=== PATIENT | female | born 1990 | race Caucasian/White ===

== ENCOUNTER 2016-08-15 03:40 | Inpatient (IN) | payer BC ==
[~2016-08-15] VITALS: Ht 170.2 cm; Wt 91.0 kg
[2016-08-15 04:24] VITALS: Ht 170.2 cm; Wt 91.0 kg
[2016-08-15 04:25] VITALS: BP 126/77; PULSE 68; RESP 15
[2016-08-15] MEDS ORDERED: OXYTOCIN 30 UNITS/LR 500 ML IV PRN (04:30)
[2016-08-15] MEDS ORDERED: METHYLERGONOVINE 0.2 MG INJ IM PRN (04:30)
[2016-08-15] MEDS ORDERED: IBUPROFEN 600 MG TAB PO PRN (04:30)
[2016-08-15] MEDS ORDERED: LIDOCAINE 1% (MPF) 30 ML INJ INJ PRN (04:30)
[2016-08-15] MEDS ORDERED: CARBOPROST 250 MCG INJ IM PRN (04:30)
[2016-08-15] MEDS ORDERED: LACTATED RINGER'S 1,000 ML IV PRN (04:30)
[2016-08-15] MEDS ORDERED: BUTORPHANOL 2 MG INJ IV PRN (04:30)
[2016-08-15] MEDS ORDERED: OXYTOCIN 30 UNITS/LR 500 ML IV SCH ×2 (04:30→21:00)
[2016-08-15] MEDS ORDERED: MISOPROSTOL 200 MCG TAB PR PRN (04:30)
[2016-08-15] MEDS: LACTATED RINGER'S 1,000 ML IV SCH ×3 (04:34→19:32)
[2016-08-15 05:46] LABS: INR 0.88; PROTIME 11.9 Sec (12.2-14.2); PT RATIO 0.9
[2016-08-15 05:47] LABS: PARTIAL THROMBOPLASTIN TIME 25.5 Sec (25.0-35.0)
[2016-08-15 05:53] LABS: BASOPHILS % 0.2 % (0.0-2.0); EOSINOPHILS % 0.5 % (0.0-7.0); HEMATOCRIT 34.1 % (37.0-47.0); HEMOGLOBIN 11.6 g/dl (12.0-16.0); LYMPHOCYTES # 2.1 10^3/ul (0.8-2.9); LYMPHOCYTES % 24.7 % (15.0-51.0); MEAN CORPUSCULAR HEMOGLOBIN 31.8 pg (29.0-33.0); MEAN CORPUSCULAR HGB CONC 34.1 g/dl (32.0-37.0); MEAN CORPUSCULAR VOLUME 93.3 fl (82.0-101.0); MEAN PLATELET VOLUME 11.3 fl (7.4-10.4); MONOCYTE # 0.8 10^3/ul (0.3-0.9); MONOCYTES % 9.5 % (0.0-11.0); NEUTROPHIL # 5.4 10^3/ul (1.6-7.5); NEUTROPHILS % 65.1 % (39.0-77.0); PLATELET COUNT 143 10^3/UL (140-440); RED BLOOD COUNT 3.66 10^6/ul (4.20-5.40); RED CELL DISTRIBUTION WIDTH 13.3 % (11.5-14.5); UNCORRECTED WBC 8.4 10^3/ul (4.8-10.8); WHITE BLOOD COUNT 8.4 10^3/ul (4.8-10.8)
[2016-08-15 06:51] LABS: CONDITION 1; LH ANALYZER COMMENTS 1; SUSPECT 1
[2016-08-15] MEDS ORDERED: METHYLERGONOVINE 0.2 MG INJ ONE (07:00)
[2016-08-15 08:09] LABS: BARBITURATES Negative (NEGATIVE); BENZODIAZEPINES Negative (NEGATIVE); CANNABINOIDS Negative (NEGATIVE); COCAINE Negative (NEGATIVE); OPIATES Negative (NEGATIVE)
--- NOTE | 2016-08-15 10:14 | RADRPT ---
PROCEDURE: US OB. CLINICAL INDICATION: Size and dates , post dates TECHNIQUE: Multiple sonographic images of the pelvis and gravid uterus were obtained. The images were reviewed on a PACS workstation. COMPARISON: No prior studies are available for comparison. FINDINGS: There is a single viable intrauterine gestation. Cardiac activity is present with 150 beats per min tomeka. There is a vertex presentation. The placenta is anterior. There is no evidence for an abruption or placenta previa. There is a normal amount of amniotic fluid with an HERRERA = 10.7 cm. Measurements were made in order to determine age. The results are as follows: BPD =9.9 cm HC =34.6 cm AC =36 cm FL =7.9 cm Estimated gestational age of approximately 40 weeks and 2 days based on ultrasound measurements. Clinical age: 40 weeks and 3 days. The EFW = 3990 g, 73.6%, based on LMP age. RPTAT: AA IMPRESSION: Single viable intrauterine gestation of approximately 40 weeks and 2 days based on ultrasound measu rements. .Taco Chaudhry MD, MD Date Time Electronically viewed and signed by .Taco Chaudhry MD, on 08/15/2016 10:14 .S/
[2016-08-15] MEDS ORDERED: FENTAnyl 2MCG/ML-ROPIV 0.2% 100 ML ONE (10:52)
[2016-08-15] MEDS ORDERED: DIPHENHYDRAMINE 50 MG INJ IV PRN (13:30)
[2016-08-15] MEDS ORDERED: ONDANSETRON 4 MG INJ IV PRN (13:30)
[2016-08-15] MEDS ORDERED: NALOXONE (0.4 MG/ML) INJ IV PRN (13:30)
[2016-08-15] MEDS: FENTAnyl 2MCG/ML-ROPIV 0.2% 100 ML BAG EPI SCH (19:19)
[2016-08-16] MEDS: FENTAnyl 2MCG/ML-ROPIV 0.2% 100 ML BAG EPI SCH ×2 (03:07→10:52)
[2016-08-16] MEDS: LACTATED RINGER'S 1,000 ML IV SCH ×3 (03:34→19:24)
--- NOTE | 2016-08-16 07:12 | HP ---
Date/Time of Note Date/Time of Note DATE: 08/16/16 TIME: 07:09 OB - History Hx of Present Free Text/Dictation Admitted for induction of labor for postdates. : 1 Care: Good Care Ultrasounds: Normal mid trimester US Obstetrical Complications: None Medical Complications: Other Other Concerns: Asthma,no recent attcks.Uses Albuterol inhaler. Past Family/Social History * Past Medical, Surgical, Family and Obstetric Histories reviewed from chart. OB Admission Exam Vital Signs Vital Signs Vital Signs Date Time Temp Pulse Resp B/P Pulse Ox O2 Delivery O2 Flow Rate FiO2 08/15/16 04:25 98.6 68 15 126/77 Room Air Last 72 hours Lab Results CBC & BMP 08/15/16 04:25 CARRI KOEHLER MD Aug 16, 2016 07:11
--- NOTE | 2016-08-16 07:14 | PN ---
Date/Time of Note Date/Time of Note DATE: 08/16/16 TIME: 07:12 OB Subjective Subjective Subjective Induction with an epidural. OB Objective Objective Objective FHR: category 1. AROM: clear fluid HEENT: WNL Heart: Rhythm Normal Lungs: Clear Abdomen: WNL Extremities: Normal Reflexes: Normal Cervical Dilatation: 7cm Effacement: 100% Station: -1 Membranes: Ruptured Amniotic Fluid: Clear Heart Rate: 140's Accelerations: Accelerations Present Decelerations: No Decelerations Varibility: Moderate Contractions on Admission: 6-10 Minutes Apart Intensity: Mild CARRI KOEHLER MD Aug 16, 2016 07:14
--- NOTE | 2016-08-16 14:28 | LDN ---
Date/Time of Note Date/Time of Note DATE: 08/16/16 TIME: 14:27 Delivery Summary Spontaneously vaginal delivery Placenta Delivered: Spontaneously Meconium: none Perineum intact?: No Perineal laceration: 2 Perineal laceration repair: With Vycril 3-0 Anesthesia type: Epidural Estimated blood loss: 300 Sponge & Needle done & correct: Yes All needle counts correct: Yes Any foreign bodies felt in the: No Problems: CARRI KOEHLER MD Aug 16, 2016 14:28
[2016-08-16] MEDS: OXYTOCIN 30 UNITS/LR 500 ML IV SCH ×2 (15:02→16:54)
[2016-08-16 16:40] VITALS: BP 139/77; PULSE 65; RESP 18
[2016-08-16 17:09] VITALS: BP 141/71; PULSE 73; RESP 18
[2016-08-16] MEDS ORDERED: OXYTOCIN 30 UNITS/LR 500 ML IV SCH (19:15)
[2016-08-16 19:30] VITALS: BP 132/80; PULSE 79; RESP 19
[2016-08-16] MEDS ORDERED: ACETAMINOPHEN/CODEINE #3 TAB PO PRN ×2 (19:30)
[2016-08-16] MEDS ORDERED: DIBUCAINE 1% 30 GM OINT PR PRN (19:30)
[2016-08-16] MEDS ORDERED: NA PHOSPHATE/BIPHOS 133 ML ENEMA PR PRN (19:30)
[2016-08-16] MEDS ORDERED: BENZOCAINE 20% 56 ML SPRAY TOP PRN (19:30)
[2016-08-16] MEDS ORDERED: ZOLPIDEM 5 MG TAB PO PRN (19:30)
[2016-08-16] MEDS ORDERED: CARBOPROST 250 MCG INJ IM PRN (19:30)
[2016-08-16] MEDS ORDERED: OXYTOCIN 30 UNITS/LR 500 ML IV PRN (19:30)
[2016-08-16] MEDS ORDERED: METHYLERGONOVINE 0.2 MG INJ IM PRN (19:30)
[2016-08-16] MEDS ORDERED: ACETAMINOPHEN 325 MG TAB PO PRN ×2 (19:30)
[2016-08-16] MEDS ORDERED: DIPHENHYDRAMINE 25 MG CAP PO PRN (19:30)
[2016-08-16] MEDS ORDERED: MISOPROSTOL 200 MCG TAB PR PRN (19:30)
[2016-08-16] MEDS ORDERED: WITCH HAZEL/GLYCERIN PAD PR PRN (19:30)
[2016-08-16] MEDS ORDERED: ONDANSETRON 4 MG INJ IV PRN (19:30)
[2016-08-16] MEDS ORDERED: ONDANSETRON 4 MG TAB PO PRN (19:30)
[2016-08-16] MEDS: MAGNESIUM HYDROXIDE 30ML CUP PO SCH (21:03)
[2016-08-16] MEDS: IBUPROFEN 800 MG TAB PO SCH (23:34)
[2016-08-17 03:47] VITALS: BP 114/66; PULSE 84; RESP 20
[2016-08-17] MEDS: IBUPROFEN 800 MG TAB PO SCH ×4 (05:55→23:44)
[2016-08-17 08:00] VITALS: BP 114/70; PULSE 66; RESP 18
[2016-08-17 08:20] LABS: BASOPHILS % 0.3 % (0.0-2.0); EOSINOPHILS % 0.3 % (0.0-7.0); HEMATOCRIT 30.7 % (37.0-47.0); HEMOGLOBIN 10.4 g/dl (12.0-16.0); LYMPHOCYTES % 14.5 % (15.0-51.0); MEAN CORPUSCULAR HEMOGLOBIN 31.3 pg (29.0-33.0); MEAN CORPUSCULAR HGB CONC 33.8 g/dl (32.0-37.0); MEAN CORPUSCULAR VOLUME 92.6 fl (82.0-101.0); MEAN PLATELET VOLUME 11.1 fl (7.4-10.4); MONOCYTES % 7.7 % (0.0-11.0); NEUTROPHIL # 10.5 10^3/ul (1.6-7.5); NEUTROPHILS % 77.2 % (39.0-77.0); PLATELET COUNT 118 10^3/UL (140-440); RED BLOOD COUNT 3.31 10^6/ul (4.20-5.40); RED CELL DISTRIBUTION WIDTH 13.9 % (11.5-14.5); UNCORRECTED WBC 13.6 10^3/ul (4.8-10.8); WHITE BLOOD COUNT 13.6 10^3/ul (4.8-10.8)
[2016-08-17 08:34] LABS: CONDITION 1; LH ANALYZER COMMENTS 1; NUCLEATED RED BLOOD CELLS # 0.3 10^3/ul (0.0-0.0); SUSPECT 1
[2016-08-17] MEDS: MAGNESIUM HYDROXIDE 30ML CUP PO SCH ×2 (09:00→20:45)
[2016-08-17 15:41] VITALS: BP 107/76; PULSE 70; RESP 18
--- NOTE | 2016-08-17 17:44 | PN ---
Date/Time of Note Date/Time of Note DATE: 08/17/16 TIME: 17:40 OB Subjective Subjective Subjective had b.m no c/o OB Objective Objective Objective vss afebrile fundus firm lochia min calf neg p.p 13.6, 10.4 118 30.7 OB Assessment/Plan Other Assessment: stable #1 Other plan: d/s home in am ELENA BECKWITH MD Aug 17, 2016 17:44
[2016-08-17 20:00] VITALS: BP 122/68; PULSE 84; RESP 20
[2016-08-17] MEDS ORDERED: INFLUENZA VIRUS VACCINE 0.5 ML SYG IM* ONE (20:00)
[2016-08-18 04:53] VITALS: BP 117/66; PULSE 79; RESP 19
[2016-08-18] MEDS: IBUPROFEN 800 MG TAB PO SCH ×2 (05:35→12:18)
[2016-08-18 07:40] VITALS: BP 106/63; PULSE 76; RESP 18
--- NOTE | 2016-08-18 07:57 | PD.PPDC ---
[employer] Discharge Instruction Diagnosis Final Diagnosis: Term .NVD. 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
--- NOTE | 2016-08-18 07:58 | DS ---
Date/Time of Note Date/Time of Note DATE: 08/18/16 TIME: 07:57 Obstetrical Discharge Record Final Diagnosis Final Diagnosis: Term delivered Vaginal Delivery Obstetrical Delivery: Spontaneous, Episiotomy, Repaired Condition on Discharge Physical Assessment Last Vitals: Afebrile.Normal VS Voiding: Yes Bowel Movement: Yes Breast: Soft, non-tender Fundus: Firm Calf Tenderness: No Patient Condition: Good CARRI KOEHLER MD Aug 18, 2016 07:58
[2016-08-18] MEDS ORDERED: DIPHTH/TET/ACEL PERTUSS (ADULT) 0.5 ML VIAL IM* ONE (09:00)
[2016-08-18] MEDS ORDERED: MEASLES,MUMPS,RUBELLA VACCINE INJ SC* ONE (09:00)
[2016-08-18] MEDS: MAGNESIUM HYDROXIDE 30ML CUP PO SCH (09:25)
== END 2016-08-18 14:35 | disposition home or self-care (01) | DRG 775 ==
LOC: L-D 03:40 → PP1 08-16 16:29
PROVIDERS: ADMIT Specialist; ATTEND Specialist
PROC: 10E0XZZ Delivery of Products of Conception, External Approach (ICD-10-PCS; principal; 2016-08-16)
PROC: 3E00X4Z Introduction of Serum, Toxoid and Vaccine into Skin and Mucous Membranes, External Approach (ICD-10-PCS; 2016-08-18)
DX: O80 Encounter for full-term uncomplicated delivery (principal); Z23 Encounter for immunization; Z3A.39 39 weeks gestation of pregnancy; Z37.0 Single live birth
CPT/HCPCS: 62319; 76815; 80307; 85025; 85610; 85730; 86592; 86900; 86901; 90686; 90715; J2210; J2590; J3010; J7120